=== PATIENT | male | born 1985 ===

== ENCOUNTER 2021-05-08 01:11 | Emergency (ER) | payer SELFPAY ==
[~2021-05-08] VITALS: Ht 185.4 cm; Wt 90.7 kg
--- NOTE | 2021-05-08 01:15 | NUR ---
Pt ambulated to ER with c/o bilateral ext pain d/t working out x4 days. A/O x4, no SOB or labored breathing. Denies CP/pressure. Denies any GI/ distress.
--- NOTE | 2021-05-08 01:23 | NUR ---
Dr. Hernandez at bedside MSE in progress.
--- NOTE | 2021-05-08 02:21 | NUR ---
Patient discharged to home in stable condition. Written and verbal after care instructions given. Patient verbalizes understanding of instructions. Stressed follow up or return to ER for worsening s/s. A/O x4, no SOB or labored breathing, afebrile. Denies any pain/discomfort this time. Steady gait.
[2021-05-08 02:22] VITALS: BP 122/76
== END 2021-05-08 02:22 | disposition home or self-care (01) ==
LOC: ER 01:13
DX: M60.822 Other myositis, left upper arm (principal); M60.821 Other myositis, right upper arm; X50.3XXA Overexertion from repetitive movements, initial encounter; X50.9XXA Other and unspecified overexertion or strenuous movements or postures, initial encounter; Y93.B3 Activity, free weights; Y92.89 Other specified places as the place of occurrence of the external cause
CPT/HCPCS: A4663